=== PATIENT | male | born 1990 | race Caucasian/White ===

== ENCOUNTER 2023-03-17 15:30 | Emergency (ER) | payer BC ==
[2023-03-17] MEDS ORDERED: Acetaminophen/HYDROcodone 325-5 MG Tab PO ONE (15:59)
== END 2023-03-17 18:17 | disposition home or self-care (01) ==
LOC: MW.ED 15:30
DX: S29.9XXA Unspecified injury of thorax, initial encounter (principal); W18.09XA Striking against other object with subsequent fall, initial encounter
CPT/HCPCS: 71101; 99283; A9270